=== PATIENT | female | born 2000 | race Caucasian/White ===

== ENCOUNTER 2021-09-13 08:54 | Emergency (ER) | payer SELFPAY ==
[2021-09-13] MEDS ORDERED: ONDANSETRON 4 MG (ODT) TAB ONE (09:27)
[2021-09-13 12:03] LABS: SARS-COV-2 RT PCR NEGATIVE (NEGATIVE)
--- NOTE | 2021-09-13 12:13 | EDPHYS ---
Physician Documentation [facility] Name: Shilpa Krueger Age: 21 yrs Sex: Female : 2000 Arrival Date: 09/13/2021 Time: 08:57 Bed 14 Private MD: ED Physician Eitan Naidu HPI: 09/13 09:30 This 21 yrs old Female presents to ER via Ambulatory with complaints of cp Vomiting/Diarrhea. 09:30 The patient presents to the emergency department with nausea, that is moderate, cp vomiting, that is intermittent, diarrhea, that is intermittent. Onset: The symptoms/episode began/occurred 3 day(s) ago. Possible causes: sick contacts, by co-worker(s). Associated signs and symptoms: Pertinent negatives: constipation, dysuria, fever, cough, sore throat. Severity of symptoms: in the emergency department the symptoms are unchanged despite home interventions. 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 - Social history:: Smoking status: Patient denies any tobacco usage or history of. ROS: 09:35 Constitutional: Negative for body aches, fever. cp 09:35 Eyes: Negative for injury, pain, redness, and discharge. cp 09:35 ENT: Negative for drainage from ear(s), ear pain, sore throat, difficulty swallowing, difficulty handling secretions. 09:35 Respiratory: Negative for cough, shortness of breath, wheezing. 09:35 Abdomen/GI: Positive for nausea, vomiting, diarrhea, Negative for constipation. 09:35 : Negative for urinary symptoms. 09:35 Neuro: Negative for altered mental status, headache, weakness. 09:35 All other systems are negative. Exam: 09:40 Constitutional: The patient appears in no acute distress, alert, awake, non-toxic, well cp developed, well nourished, obese. 09:40 Head/Face: Normocephalic, atraumatic. cp 09:40 Eyes: Periorbital structures: appear normal, Conjunctiva: normal, no exudate, no injection, Sclera: no appreciated abnormality, Lids and lashes: appear normal, bilaterally. 09:40 ENT: External ear(s): are unremarkable, Nose: is normal, Mouth: Lips: moist, Oral mucosa: pink and intact, moist, Posterior pharynx: Airway: no evidence of obstruction, patent, Tonsils: are normal in appearance. 09:40 Neck: ROM/movement: is normal, is supple, without pain, no range of motions limitations. 09:40 Chest/axilla: Inspection: normal, Palpation: is normal, no crepitus, no tenderness. 09:40 Cardiovascular: Rate: normal, Rhythm: regular. 09:40 Respiratory: the patient does not display signs of respiratory distress, Respirations: normal, no use of accessory muscles, no retractions, labored breathing, is not present, Breath sounds: are clear throughout, no decreased breath sounds, no stridor, no wheezing. 09:40 Abdomen/GI: Inspection: abdomen appears normal, Bowel sounds: active, all quadrants, Palpation: abdomen is soft and non-tender, in all quadrants. 09:40 Back: pain, is absent, ROM is normal. Vital Signs: 09:07 BP 157 / 82; Pulse 97; Resp 18; Temp 97.9(TE); Pulse Ox 100% on R/A; Weight 149.69 kg; iw Height 5 ft. 6 in. (167.64 cm); Pain 9/10; 09:07 Body Mass Index 53.26 (149.69 kg, 167.64 cm) iw MDM: 09:20 Patient medically screened. cp 10:00 Differential diagnosis: gastritis, cholecystitis, viral gastroenteritis, cp gastroenteritis. 12:11 Data reviewed: vital signs, nurses notes, lab test result(s). cp 12:11 Counseling: I had a detailed discussion with the patient and/or guardian regarding: the cp historical points, exam findings, and any diagnostic results supporting the discharge/admit diagnosis, lab results, to return to the emergency department if symptoms worsen or persist or if there are any questions or concerns that arise at home. ED course: VSS. Patient appears non-toxic. Nausea improved and vomiting resolved. Will discharge to home for continued monitoring. 09/13 09:22 Order name: COVID-19/FLU A+B (Document "Date of Onset" if Symptomatic); Complete Time: cp 12:17 09/13 12:17 Interpretation: Reviewed. cp 09/13 11:23 Order name: PO challenge; Complete Time: 11:30 cp Administered Medications: 09:29 Drug: Zofran (Ondansetron) 4 mg Route: PO; gary Disposition Summary: 09/13/21 12:12 Discharge Ordered Location: Home cp Problem: new cp Symptoms: have improved cp Condition: Stable cp Diagnosis - Nausea with vomiting, unspecified cp - Diarrhea, unspecified cp Followup: cp - With: Private Physician - When: 1 - 2 days - Reason: Worsening of condition Discharge Instructions: - Discharge Summary Sheet cp - Food Choices to Help Relieve Diarrhea, Adult cp - Diarrhea, Adult cp - Nausea and Vomiting, Adult cp Forms: - Medication Reconciliation Form cp - Thank You Letter cp - Antibiotic Education cp - Prescription Opioid Use cp - Work release form ww Prescriptions: - Zofran 4 mg Oral Tablet - take 1 tablet by ORAL route every 12 hours As needed; 20 tablet; Refills: 0, cp Product Selection Permitted Signatures: Dispatcher [employer] Linda Oquendo, RN RN Jeramy Carrizales PA PA cp Wood, Whitney, RN MENA vega
--- NOTE | 2021-09-13 12:13 | ER ---
Nurse's Notes [facility] Name: Shilpa Krueger Age: 21 yrs Sex: Female : 2000 Arrival Date: 09/13/2021 Time: 08:57 Bed 14 Private MD: Diagnosis: Nausea with vomiting, unspecified;Diarrhea, unspecified Presentation: 09/13 09:07 Chief complaint: Patient states: vomiting diarrhea and body aches X 3 days, states that iw several of her coworkers have been diagnosed with COVID recently, pt denies cough. Coronavirus screen: Client presents with at least one sign or symptom that may indicate coronavirus-19. Ebola Screen: Patient negative for fever greater than or equal to 101.5 degrees Fahrenheit, and additional compatible Ebola Virus Disease symptoms Patient denies exposure to infectious person. Patient denies travel to an Ebola-affected area in the 21 days before illness onset. No symptoms or risks identified at this time. Initial Sepsis Screen: Does the patient meet any 2 criteria? No. Patient's initial sepsis screen is negative. Does the patient have a suspected source of infection? No. Patient's initial sepsis screen is negative. Risk Assessment: Do you want to hurt yourself or someone else? Patient reports no desire to harm self or others. Onset of symptoms was September 13, 2021. 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 - Social history:: Smoking status: Patient denies any tobacco usage or history of. Screenin:29 Abuse screen: Denies threats or abuse. Denies injuries from another. Nutritional ww screening: No deficits noted. Tuberculosis screening: No symptoms or risk factors identified. Fall Risk None identified. Assessment: 09:29 General: Appears in no apparent distress. Behavior is anxious, crying. Pain: Denies ww pain. Neuro: Level of Consciousness is awake, alert, obeys commands, Oriented to person, place, time, situation, Speech is normal. Cardiovascular: Capillary refill Patient's skin is warm and dry. Respiratory: Airway is patent Respiratory effort is even, unlabored, Respiratory pattern is regular, symmetrical. GI: Abdomen is obese, Reports nausea. : No signs and/or symptoms were reported regarding the genitourinary system. Derm: Skin is intact. 11:00 Reassessment: Patient appears in no apparent distress at this time. No changes from ww previously documented assessment. Patient and/or family updated on plan of care and expected duration. Pain level reassessed. Patient is alert, oriented x 3, equal unlabored respirations, skin warm/dry/pink. 11:40 Reassessment: Patient appears in no apparent distress at this time. Patient and/or ww family updated on plan of care and expected duration. Pain level reassessed. tolerating water and gatorade. 12:24 Reassessment: Patient appears in no apparent distress at this time. No changes from ww previously documented assessment. Patient and/or family updated on plan of care and expected duration. Pain level reassessed. Vital Signs: 09:07 BP 157 / 82; Pulse 97; Resp 18; Temp 97.9(TE); Pulse Ox 100% on R/A; Weight 149.69 kg; iw Height 5 ft. 6 in. (167.64 cm); Pain 9/10; 09:07 Body Mass Index 53.26 (149.69 kg, 167.64 cm) ED Course: 08:57 Patient arrived in ED. mr 09:00 Jeramy Mcknight PA is PHCP. cp 09:00 Eitan Naidu MD is Attending Physician. cp 09:10 Triage completed. iw 09:10 Arm band placed on. iw 09:23 Janette Christiansen, MENA is Primary Nurse. ww 09:24 Patient has correct armband on for positive identification. Bed in low position. Call 5 light in reach. Side rails up X 1. Pulse ox on. NIBP on. 09:24 COVID swab sent to lab. [facility] 12:24 No provider procedures requiring assistance completed. Patient did not have IV access ww during this emergency room visit. Administered Medications: 09:29 Drug: Zofran (Ondansetron) 4 mg Route: PO; ww Outcome: 12:12 Discharge ordered by . cp 12:24 Discharged to home ambulatory. ww 12:24 Condition: stable 12:24 Discharge instructions given to patient, Instructed on discharge instructions, follow up and referral plans. medication usage, safety practices, Demonstrated understanding of instructions, follow-up care, medications, Prescriptions given X 1. 12:24 Patient left the ED. ww Signatures: Shavon Monte Irene, RN RN iw Jeramy Mcknight PA PA cp Martinez, Maria [facility] Janette Christiansen RN RN ww Corrections: (The following items were deleted from the chart) 09:17 09:07 BP 157 / 82; Pulse 97bpm; Resp 18bpm; Pulse Ox 100% RA; 149.69 kg; Height 5 ft. 6 iw in.; BMI: 53.2; Pain 9/10; iw
[2021-09-13 12:58] VITALS: BP 157/82; TEMP 97.9; O2SAT 100
== END 2021-09-13 12:24 | disposition home or self-care (01) ==
LOC: ER 08:54
DX: R11.2 Nausea with vomiting, unspecified (principal); R19.7 Diarrhea, unspecified; Z20.822 Contact with and (suspected) exposure to COVID-19
CPT/HCPCS: 0240U; 99283

== ENCOUNTER → 2023-08-23 | Emergency (ER) | payer BC ==
[~2023-08-23] MED LIST: DICYCLOMINE HCL 10 MG CAP ONE; FAMOTIDINE 20 MG/2 ML VIAL IV ONE; KETOROLAC 30 MG/ML INJ ONE; METOCLOPRAMIDE 10 MG/2mL INJ ONE; MORPHINE 4 MG/ML SYR ONE; NA CHLORIDE 0.9% 1,000 ML ONE; ONDANSETRON 4 MG/2 ML VIAL ONE; PROMETHAZINE 25 MG TABLET ONE
--- OUTSIDE RECORDS SUMMARY | 2023-08-23 04:36 | XMS REPORT | Continuity of Care Document ---
Author Name Unknown Address [address] [place] [address] [facility] thconnect Address [address] [place] [address] Care Team Providers Care Acute Specialist Name Role Phone Unavailable Unavailable Unavailable Encounters Start Date/Time End Date/Time Encounter Type Admission Type Attending Clinicians Care Facility Care Department Encounter ID Source 2022-09-29 16:59:57 2022-09-29 16:59:57 Outpatient [facility] [id number] 2022-09-02 10:22:48 2022-09-02 10:22:48 Outpatient [facility] [id number] 2022-07-23 09:01:19 2022-07-23 09:01:19 Outpatient [facility] [id number] 2022-06-17 10:12:20 2022-06-17 10:12:20 Outpatient [facility] [id number] Results Test Description Test Time Test Comments Results Result Co mments Source COMPREHENSIVE METABOLIC [id number] 04:05:00* Test Item Value Reference Range Interpretation Comme nts GLUCOSE (test code = 2217) 101 MG/DL 70-99 H BUN (test code = 2208) 10 MG/DL 6-20 CREATININE (test code = 2214) 0.79 MG/DL 0.60-1.30 eGFR (2020 CKD-EPI) (test code = 33708) 108 ML/MIN/1.73 >60 CALC BUN/CREAT (test code = 2235) 13 RATIO 6-28 SODIUM (test code = 2231) 139 MEQ/L 133-146 POTASSIUM (test code = 2228) 4.6 MEQ/L 3.5-5.4 CHLORIDE (test code = 2215) 105 MEQ/L 95-107 CARBON DIOXIDE (test code = 6) 23 MEQ/L 19-31 CALCIUM (test code = 2208) 9.3 MG/DL 8.5-10.5 PROTEIN, TOTAL (test code = 222) 7.2 G/DL 6.1-8.3 ALBUMIN (test code = 2201) 4.1 G/DL 3.5-5.2 CALC GLOBULIN (test code = 2240) 3.1 G/DL 1.9-3.7 CALC A/G RATIO (test code = 2234) 1.3 RATIO 1.0-2.6 BILIRUBIN, TOTAL (test code = 2206) 0.4 MG/DL See_Comment [Automated me ssage] The system which generated this result transmitted reference range: <=1.2. The reference range was not used to interpret this result as normal/abnormal. ALKALINE PHOSPHATASE (test code = 2203) 124 U/L 40-117 H AST (test code = 2217) 27 U/L 9-40 ALT (test code = 2218) 41 U/L 5-40 H LIPID [id number] 04:05:00* Test Item Value Reference Range Interpretation Comme nts CHOLESTEROL (test code = 2210) 186 MG/DL <200 TRIGLYCERIDES (test code = 2232) 103 MG/DL <150 HDL CHOLESTEROL (test code = 0) 36 MG/DL >39 L CALC LDL CHOL (test code = 2236) 129 MG/DL <100 H NOTE: CALCULATED LDL IS BASED ON FELICITY-SCHULTE METHOD WHICHINCLUDES ADJUSTABLE TRIGLYCERIDE:VLDL CHOLESTEROL RATIO.THIS FACTOR VARIES BY MEASURED TRIGLYCERIDE AND NON-HDLCHOLESTEROL CONCENTRATIONS WITH INCREASED CALCULATED LDL SEENIN HIGHER TRIGLYCERIDE OR LOWER NON-HDL SPECIMENS. FOR MOREINFORMATION, SEE CLIENT ANNOUNCEMENT AT [email or web address] RISK RATIO LDL/HDL (test code = 2238) 3.58 RATIO <3.22 H CBC W/AUTO DIFF WITH [id number] 03:47:46* Test Item Value Reference Range Interpretation Comme nts WBC (test code = 1001) 11.3 K/UL 3.5-11.0 H RBC (test code = 1002) 4.71 M/UL 3.80-5.40 HEMOGLOBIN (test code = 1003) 13.5 G/DL 11.5-15.5 HEMATOCRIT (test code = 1004) 40.4 % 34.0-45.0 MCV (test code = 1005) 85.8 fL 80.0-99.0 MCH (test code = 1006) 28.7 PG 25.0-33.0 MCHC (test code = 1007) 33.4 G/DL 31.0-36.0 RDW (test code = 1038) 13.7 % 11.5-15.0 NEUTROPHILS (test code = 1008) 77.7 % LYMPHOCYTES (test code = 1010) 15.3 % MONOCYTES (test code = 1011) 5.7 % EOSINOPHILS (test code = 1012) 0.5 % BASOPHILS (test code = 1013) 0.3 % IMMATURE GRANULOCYTES (test code = 1036) 0.5 % NUCLEATED RBCS (test code = 1065) 0.0 /100 WBC'S See_Comment [Automated BuddyBeta ge] The system which generated this result transmitted reference range: 0.0. The reference range was not used to interpret this result as normal/abnormal. PLATELET COUNT (test code = 1015) 423 K/UL 130-400 H ABSOLUTE NEUTROPHILS (test code = 1066) 8.80 K/UL 1.50-7.50 H ABSOLUTE LYMPHOCYTES (test code = 1067) 1.73 K/UL 1.00-4.00 ABSOLUTE MONOCYTES (test code = 1068) 0.65 K/UL 0.20-1.00 ABSOLUTE EOSINOPHILS (test code = 1040) 0.06 K/UL 0.00-0.50 ABSOLUTE BASOPHILS (test code = 1069) 0.03 K/UL 0.00-0.20 ABS IMMATURE GRANULOCYTES (test code = 1020) 0.06 K/UL 0.00-0.10 ABS NUCLEATED RBCS (test code = 42778) 0.00 K/UL 0.00-0.11
[2023-08-23 05:13] LABS: Specific Gravity 1.028 (1.005-1.030)
[2023-08-23 05:15] LABS: Specific Gravity 1.028 (1.005-1.030); Urine Bacteria <20 /HPF (<20); Urine Bilirubin NEGATIVE (Negative); Urine Blood Negative (Negative); Urine Clarity Turbid (Clear); Urine Color Light-Yellow (Yellow); Urine Glucose NEGATIVE (Negative); Urine Mucus Slight /HPF (None Seen); Urine Protein NEGATIVE (Negative); Urine RBC None Seen /HPF (None Seen); Urine Urobilinogen 1+ (Normal)
[2023-08-23 05:17] LABS: Absolute Eosinophils 0.1 K/uL (0-0.5); Absolute Lymphocytes (CBC) 3.3 K/uL (0.7-4.9); Absolute Monocytes 0.9 K/uL (0.1-1.3); Absolute Neutrophil 10.2 K/uL (1.8-8.0); Basophils % 0.2 % (0-1.3); Eosinophils % 0.8 % (0-4.4); Hematocrit 41.5 % (36.0-45.0); Lymphocytes % 22.6 % (15.3-44.8); MCHC 33.7 g/dL (32.0-36.0); MCV 86.2 fL (80-100); MPV 7.8 fL (7.6-11.3); Monocytes % 6.3 % (3.3-12.3); Neutrophils % 70.1 % (41.7-73.7); Nucleated Red Blood Cells % 0.1 % (0-0); Platelets 436 thou/uL (152-406); RBC Red Blood Cell Count 4.81 M/uL (3.86-4.86); Red Cell Distribution Width 14.9 % (12.1-15.2)
[2023-08-23 05:28] LABS: Albumin 3.6 g/dL (3.4-5.0); Albumin/Globulin Ratio 0.8 (1.1-1.8); Anion Gap 9.8 mEq/L (5.0-15.0); Bilirubin Total 0.4 mg/dL (0.2-1.0); Globulin 4.4 g/dL (2.3-3.5); Potassium 3.8 mEq/L (3.5-5.1)
--- NOTE | 2023-08-23 07:28 | ER ---
Nurse's Notes [facility] Name: Shilpa Chawla Age: 23 yrs Sex: Female : 2000 Arrival Date: 08/23/2023 Time: 04:32 Bed 7 Private MD: Diagnosis: Other cholelithiasis without obstruction;Biliary colic, cholelithiasis without cholecystitis Presentation: 08/22 04:40 Chief complaint: Patient states: epigastric pain starting at 0200 today that gets worse km8 with palpation; denies n/v/d or fever. Coronavirus screen: Client denies travel out of the [place] in the last 14 days. Ebola Screen: No symptoms or risks identified at this time. Initial Sepsis Screen: Does the patient meet any 2 criteria? HR > 90 bpm. No. Patient's initial sepsis screen is negative. Does the patient have a suspected source of infection? No. Patient's initial sepsis screen is negative. Risk Assessment: Do you want to hurt yourself or someone else? Patient reports no desire to harm self or others. Onset of symptoms was August 23, 2023 at 02:00. 04:40 Method Of Arrival: Ambulatory km8 04:40 Acuity: KAPIL 3 km8 Triage Assessment: 04:40 General: Appears uncomfortable, Behavior is cooperative, anxious, crying. Pain: km8 Complains of pain in epigastric area and right upper quadrant Pain currently is 6 out of 10 on a pain scale. Aggravated by. EENT: No signs and/or symptoms were reported regarding the EENT system. Neuro: Level of Consciousness is awake, alert, obeys commands, Oriented to person, place, time, situation. Cardiovascular: Denies chest pain, shortness of breath, Patient's skin is warm and dry. Respiratory: Airway is patent Respiratory effort is even, unlabored, Respiratory pattern is regular, symmetrical. GI: Abdomen is obese, Abdomen is tender to palpation in epigastric area and right upper quadrant. : No signs and/or symptoms were reported regarding the genitourinary system. Derm: No signs and/or symptoms reported regarding the dermatologic system. Skin is intact, is healthy with good turgor, Skin is dry, Skin is flushed, Skin temperature is warm. Musculoskeletal: No signs and/or symptoms reported regarding the musculoskeletal system. Range of motion: intact in all extremities. 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 - Social history:: Smoking status: Patient denies any tobacco usage or history of. Patient uses alcohol, but reports only rare drinking. Patient/guardian denies using street drugs. - Family history:: not pertinent. Screenin:40 [facility] ED Fall Risk Assessment (Adult) History of falling in the last 3 months, km8 including since admission No falls in past 3 months (0 pts) Confusion or Disorientation No (0 pts) Intoxicated or Sedated No (0 pts) Impaired Gait No (0 pts) Mobility Assist Device Used No (0 pt) Altered Elimination No (0 pt) Score/Fall Risk Level 0 - 2 = Low Risk Oriented to surroundings, Maintained a safe environment, Educated pt \T\ family on fall prevention, incl call for assistance when getting out of bed, Assessed \T\ reinforced patient's understanding of fall precautions. Abuse screen: Denies threats or abuse. Denies injuries from another. Nutritional screening: No deficits noted. Tuberculosis screening: No symptoms or risk factors identified. Assessment: 04:40 Reassessment: see triage assessment/notes. km8 06:34 Reassessment: Patient and/or family updated on plan of care and expected duration. Pain tm6 level reassessed. Patient is alert, oriented x 3, equal unlabored respirations, skin warm/dry/pink. 07:10 Reassessment: Dr. Marin at . ll1 07:29 General: Appears in no apparent distress. Behavior is calm, cooperative, appropriate ll1 for age. Pain: Complains of pain in epigastric area Pain currently is 3 out of 10 on a pain scale. Quality of pain is described as aching. Neuro: No deficits noted. Cardiovascular: No deficits noted. GI: Abdomen is round Bowel sounds present X 4 quads. Reports upper abdominal pain. 07:43 Reassessment: No changes from previously documented assessment. Patient and/or family ll1 updated on plan of care and expected duration. Pain level reassessed. Patient is alert, oriented x 3, equal unlabored respirations, skin warm/dry/pink. Patient states feeling better. Patient states symptoms have improved. Vital Signs: 04:40 BP 140 / 75; Pulse 106; Resp 18; Temp 97.3(IR); Pulse Ox 99% on R/A; Weight 149.69 kg km8 (R); Height 5 ft. 7 in. (R); Pain 6/10; 05:00 BP 129 / 80; Pulse 102; Resp 18; Pulse Ox 96% on R/A; km8 06:33 BP 127 / 69; Pulse 104; Resp 21; Pulse Ox 98% on R/A; Pain 0/10; tm6 07:13 BP 125 / 76; Pulse 98; Resp 19; Pulse Ox 96% on R/A; ll1 07:44 Pulse 96; Resp 17; Pulse Ox 97% ; ll1 04:40 Body Mass Index 51.68 (149.69 kg, 170.18 cm) km8 04:40 Pain Scale: Adult km8 06:33 Pain Scale: Adult tm6 Jazmyne Coma Score: 04:40 Eye Response: spontaneous(4). Motor Response: obeys commands(6). Verbal Response: km8 oriented(5). Total: 15. ED Course: 04:35 Patient arrived in ED. jj6 04:40 Patient maintains SpO2 saturation greater than 95% on room air. km8 04:40 Arm band placed on right wrist. km8 04:40 Patient has correct armband on for positive identification. Placed in gown. Bed in low km8 position. Call light in reach. Side rails up X2. Pulse ox on. NIBP on. Door closed. Noise minimized. Lights dimmed. 04:43 Dillan Mrain MD is Attending Physician. sp4 04:55 Initial lab(s) drawn, by me, sent to lab. Inserted saline lock: 22 gauge in right kd4 antecubital area, using aseptic technique. 05:01 CBC with Diff Sent. 8 05:01 CMP Sent. 8 05:01 Lipase Sent. 8 05:01 Test, Urine Sent. 8 05:01 Urinalysis w/ reflexes Sent. 8 05:03 Triage completed. km8 05:08 Urine collected: clean catch specimen, clear. km8 05:13 Chelsea Villaseñor, RN is Primary Nurse. km8 05:44 US Abdomen Limited In Process Unspecified. EDMS 05:57 CT Abd/Pelvis - IV Contrast Only In Process Unspecified. EDMS 06:47 Client placed on continuous cardiac and pulse oximetry monitoring. NIBP monitoring tm6 applied. court monitor on. 07:00 Report received from shift mgr RN's. ll1 07:21 Srini Fan MD is Referral Physician. sp4 07:30 No provider procedures requiring assistance completed. ll1 07:34 Primary Nurse role handed off by Chelsea Villaseñor, RN ll1 07:34 Zac Canela, MENA is Primary Nurse. ll1 07:43 IV discontinued, intact, bleeding controlled, No redness/swelling at site. Pressure ll1 dressing applied. 07:43 Provided Education on: no driving on Tylenol #3 and promethazine tablets. ll1 Administered Medications: 05:34 Drug: Ketorolac IVP 30 mg IVP once Route: IVP; Site: right antecubital; tm6 06:39 Follow up: Response: No adverse reaction; Pain is decreased km8 05:34 Drug: NS 0.9% IV 1000 ml IV at 1 bolus Per protocol; 1000 mL bolus Route: IV; Rate: 1 tm6 bolus; Site: right antecubital; 05:34 Drug: Ondansetron IVP 4 mg IVP once; over 2 minutes Route: IVP; Site: right antecubital;tm6 06:39 Follow up: Response: No adverse reaction km8 05:34 Drug: metoCLOPramide IVP 10 mg IVP once; over 1 to 2 minutes Route: IVP; Site: right tm6 antecubital; 06:39 Follow up: Response: No adverse reaction km8 05:34 Drug: Famotidine IVP 20 mg IVP once; dilute with 10 mL 0.9% NaCl; give over 2 minutes tm6 Route: IVP; Site: right antecubital; 06:39 Follow up: Response: No adverse reaction km8 05:35 Drug: morphine IVP or IV 4 mg IVP once over 4 mins Route: IVP; Infused Over: 4 mins; tm6 Site: right antecubital; 06:39 Follow up: Response: No adverse reaction; Pain is decreased km8 06:43 Drug: NS 0.9% IV 1000 ml IV at 125 ml/hr continuous Route: IV; Rate: 125 ml/hr; Site: tm6 right antecubital; 07:29 Drug: Dicyclomine PO 20 mg PO once Route: PO; 1 07:43 Follow up: Response: No adverse reaction 1 07:40 Drug: Promethazine PO 25 mg PO once Route: PO; 1 07:44 Follow up: Response: No adverse reaction 1 Medication: 04:40 VIS not applicable for this client. km8 Outcome: 07:27 Discharge ordered by . domi 07:43 Discharged to home ambulatory, 1 07:43 Condition: stable 07:43 Discharge instructions given to patient, family, Instructed on discharge instructions, follow up and referral plans. no drinking with medication, no driving heavy equipment, medication usage, Demonstrated understanding of instructions, follow-up care, medications, Prescriptions given X 3, 07:45 Patient left the ED. 1 Signatures: Dispatcher [employer] EDMS Zac Canela RN RN ll1 Mavis Terry6 Dillan Marin MD MD sp4 Chelsea Villaseñor RN RN km8 Bridger Main RN RN tm6 Hanna Martinez RN RN kd4 Corrections: (The following items were deleted from the chart) 07:14 07:13 Pulse 98bpm; Pulse Ox 96% RA; ll1 ll1
--- NOTE | 2023-08-23 07:28 | EDPHYS ---
Physician Documentation [facility] Name: Shilpa Chawla Age: 23 yrs Sex: Female : 2000 Arrival Date: 08/23/2023 Time: 04:32 Bed 7 Private MD: ED Physician Dillan Marin HPI: 08/22 04:44 This 23 yrs old Female presents to ER via Unassigned with complaints of sp4 Abdominal Pain. 05:17 23-year-old female who presents with acute onset right upper quadrant abdominal pain, sp4 associated with nausea vomiting on awakening 2 hours prior to arrival. Patient has no history of prior to . No history of abdominal surgery. Pain is 6 out of 10 on a scale. 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 - Social history:: Smoking status: Patient denies any tobacco usage or history of. Patient uses alcohol, but reports only rare drinking. Patient/guardian denies using street drugs. - Family history:: not pertinent. ROS: 05:17 Constitutional: Negative for fever, chills, and weight loss, positive abdominal pain, sp4 positive vomiting 05:17 All other systems are negative, Exam: 05:17 Constitutional: This is a well developed, well nourished patient who is awake, alert, sp4 and in no acute distress. Overweight female Head/Face: Normocephalic, atraumatic. Eyes: Pupils equal round and reactive to light, extra-ocular motions intact. Lids and lashes normal. Conjunctiva and sclera are not injected. Cornea within normal limits. Periorbital areas with no swelling, redness, or edema. ENT: Nares patent. No nasal discharge, no septal abnormalities noted. Tympanic membranes are normal and external auditory canals are clear. Oropharynx with no redness, swelling, or masses, exudates, or evidence of obstruction, uvula midline. Mucous membranes moist. Neck: Trachea midline, no thyromegaly or masses palpated, and no cervical lymphadenopathy. Supple, full range of motion without nuchal rigidity, or vertebral point tenderness. Chest/axilla: Normal chest wall appearance and motion. Nontender with no deformity. No lesions are appreciated. Cardiovascular: Regular rate and rhythm with a normal S1 and S2. No gallops, murmurs, or rubs. Normal PMI, no JVD. No pulse deficits. Respiratory: Lungs have equal breath sounds bilaterally, clear to auscultation and percussion. No rales, rhonchi or wheezes noted. No increased work of breathing, no retractions or nasal flaring. Abdomen/GI: Soft, with normal bowel sounds. No distension or tympany. No guarding or rebound. No evidence of tenderness throughout. Back: No spinal tenderness. No costovertebral tenderness. Skin: Warm, dry with normal turgor. Normal color with no rashes, no lesions, and no evidence of cellulitis. MS/ Extremity: Pulses equal, no cyanosis. Neurovascular intact. Full, normal range of motion. Neuro: Awake and alert, GCS 15, oriented to person, place, time, and situation. Cranial nerves II-XII grossly intact. Motor strength 5/5 in all extremities. Sensory grossly intact. Psych: Awake, alert, with orientation to person, place and time. Behavior, mood, and affect are within normal limits Vital Signs: 04:40 BP 140 / 75; Pulse 106; Resp 18; Temp 97.3(IR); Pulse Ox 99% on R/A; Weight 149.69 kg [facility] (R); Height 5 ft. 7 in. (R); Pain 6/10; 05:00 BP 129 / 80; Pulse 102; Resp 18; Pulse Ox 96% on R/A; km8 06:33 BP 127 / 69; Pulse 104; Resp 21; Pulse Ox 98% on R/A; Pain 0/10; tm6 07:13 BP 125 / 76; Pulse 98; Resp 19; Pulse Ox 96% on R/A; ll1 07:44 Pulse 96; Resp 17; Pulse Ox 97% ; ll1 04:40 Body Mass Index 51.68 (149.69 kg, 170.18 cm) [facility] 04:40 Pain Scale: Adult 8 06:33 Pain Scale: Adult tm6 Seney Coma Score: 04:40 Eye Response: spontaneous(4). Motor Response: obeys commands(6). Verbal Response: km8 oriented(5). Total: 15. MDM: 04:45 Patient medically screened. sp4 07:06 ED course: EXAM DESCRIPTION: Abdomen Exam Limited CLINICAL HISTORY: ABD PAIN sp4 COMPARISON: None. FINDINGS: Gallbladder is well visualized and demonstrates presence of gallstones. There is no evidence of pericholecystic edema or gallbladder wall thickening. The sonographic Galeana's sign is negative. The common bile duct measure 3.5 mm. The liver and pancreas are insufficiently evaluated. IMPRESSION: Gallstones. Electronically signed by: Beverly Mims MD 08/23/2023 06:56 AM. 07:06 ED course: EXAM DESCRIPTION: CT abdomen and pelvis with contrast: CLINICAL HISTORY: sp4 Abdominal pain. COMPARISON: Gallbladder ultrasound TECHNIQUE: Without oral contrast administration, and after intravenous administration of iodinated contrast, contiguous axial sections are obtained through the abdomen and pelvis including delayed imaging, as per protocol. Sagittal and coronal reformations are obtained. Automatic exposure control (AEC), mA and/or kV adjustment by patient size, and/or iterative reconstructive technique was used, per departmental dose optimization program, during the performance of the CT examination. FINDINGS: The visualized lung bases are normal. The liver is normal in size, attenuation, enhancement and outline. Spleen is normal limits in size and demonstrates no focal abnormalities. Normal appearance of the biliary tree, pancreas and adrenal glands are noted. The gallbladder is unremarkable.. The kidneys demonstrate no evidence of renal calculi or calcifications. The kidneys demonstrate normal size, shape and outline demonstrating normal enhancement. Normal appearance of the aorta, IVC and retroperitoneum are noted. Stomach appears normal. The small bowel loops appear normal. [The appendix is normal. The colon appears unremarkable. There is no evidence of free intraperitoneal fluid or air. CT examination of the pelvis demonstrates no evidence of mass or lymphadenopathy. The urinary bladder appears unremarkable. The Uterus and ovaries appear unremarkable.. There is no evidence of inguinal lymphadenopathy. The visualized bony structures are unremarkable. IMPRESSION: Unremarkable CT abdomen and pelvis. . 07:20 Differential Diagnosis altered mental status, sepsis, flu, Cholecystitis . Data sp4 reviewed: vital signs, nurses notes, lab test result(s), radiologic studies, CT scan, ultrasound. ED course: Ultrasound revealed gallstones without signs of acute cholecystitis, CT revealed normal appearance of the biliary tree and normal gallbladder. Unremarkable CT abdomen and pelvis. Patient is stable for discharge home with as needed pain and nausea medication nonfat diet. Advised to see general surgeon on outpatient basis.. 08/22 04:44 Order name: CBC with Diff; Complete Time: 06:56 sp4 08/22 04:44 Order name: CMP; Complete Time: 06:56 sp4 08/22 04:44 Order name: Lipase; Complete Time: 06:56 sp4 08/22 04:44 Order name: Test, Urine; Complete Time: 06:56 sp4 08/22 04:44 Order name: Urinalysis w/ reflexes; Complete Time: 06:56 sp4 08/22 05:17 Order name: US Abdomen Limited 4 08/22 05:17 Order name: CT Abd/Pelvis - IV Contrast Only 4 08/22 04:44 Order name: IV Saline Lock; Complete Time: 05:13 sp4 08/22 04:44 Order name: Labs collected and sent; Complete Time: 05:13 sp4 Administered Medications: 05:34 Drug: Ketorolac IVP 30 mg IVP once Route: IVP; Site: right antecubital; tm6 06:39 Follow up: Response: No adverse reaction; Pain is decreased km8 05:34 Drug: NS 0.9% IV 1000 ml IV at 1 bolus Per protocol; 1000 mL bolus Route: IV; Rate: 1 tm6 bolus; Site: right antecubital; 05:34 Drug: Ondansetron IVP 4 mg IVP once; over 2 minutes Route: IVP; Site: right antecubital;tm6 06:39 Follow up: Response: No adverse reaction km8 05:34 Drug: metoCLOPramide IVP 10 mg IVP once; over 1 to 2 minutes Route: IVP; Site: right tm6 antecubital; 06:39 Follow up: Response: No adverse reaction km8 05:34 Drug: Famotidine IVP 20 mg IVP once; dilute with 10 mL 0.9% NaCl; give over 2 minutes tm6 Route: IVP; Site: right antecubital; 06:39 Follow up: Response: No adverse reaction km8 05:35 Drug: morphine IVP or IV 4 mg IVP once over 4 mins Route: IVP; Infused Over: 4 mins; tm6 Site: right antecubital; 06:39 Follow up: Response: No adverse reaction; Pain is decreased [facility] 06:43 Drug: NS 0.9% IV 1000 ml IV at 125 ml/hr continuous Route: IV; Rate: 125 ml/hr; Site: tm6 right antecubital; 07:29 Drug: Dicyclomine PO 20 mg PO once Route: PO; ll1 07:43 Follow up: Response: No adverse reaction 1 07:40 Drug: Promethazine PO 25 mg PO once Route: PO; 1 07:44 Follow up: Response: No adverse reaction ll1 Disposition Summary: 08/23/23 07:27 Discharge Ordered Notes: Location: Home sp4 Problem: new sp4 Symptoms: have improved sp4 Condition: Stable sp4 Diagnosis - Other cholelithiasis without obstruction sp4 - Biliary colic, cholelithiasis without cholecystitis sp4 Followup: sp4 - With: Srini Fan MD - When: 7 - 10 days - Reason: Recheck today's complaints Discharge Instructions: - Discharge Summary Sheet sp4 - Cholelithiasis, [id number] sp4 Forms: - Work release form ll1 - Patient Portal Instructions sp4 Prescriptions: - acetaminophen-codeine 300-60 mg Oral tablet - take 1 tablet ORAL route every 4 hours PRN pain; 20 tablet; Refills: 0, Product sp4 Selection Permitted - Ibuprofen 800 mg Oral Tablet - take 1 tablet ORAL route every 8 hours As needed take with food; 30 tablet; sp4 Refills: 0, Product Selection Permitted - promethazine 25 mg Oral tablet - take 1 tablet ORAL route every 6 hours As needed PRN nausea; 30 tablet; sp4 Refills: 0, Product Selection Permitted Signatures: Dispatcher [employer] Zac Steel RN RN ll1 Dillan Marin MD MD sp4 Chelsea Villaseñor RN RN km8 Bridger Main RN RN tm6
[2023-08-23 08:01] VITALS: BP 125/76; TEMP 97.3; O2SAT 97
--- NOTE | 2023-08-23 17:05 | RAD REPORT ---
EXAM DESCRIPTION: CT abdomen and pelvis with contrast: CLINICAL HISTORY: Abdominal pain. COMPARISON: Gallbladder ultrasound TECHNIQUE: Without oral contrast administration, and after intravenous administration of iodinated c ontrast, contiguous axial sections are obtained through the abdomen and pelvis including delayed imag ing, as per protocol. Sagittal and coronal reformations are obtained. Automatic exposure control (AEC ), mA and/or kV adjustment by patient size, and/or iterative reconstructive technique was used, per d epartmental dose optimization program, during the performance of the CT examination. FINDINGS: The visualized lung bases are normal. The liver is normal in size, attenuation, enhancement and outline. Spleen is normal limits in size and demonstrates no focal abnormalities. Normal appearance of the biliary tree, pancreas and adrenal glands are noted. The gallbladder is unremarkable.. The kidneys demonstrate no evidence of renal calculi or calcifications. The kidneys demonstrate normal size, shape and outline demonstrating normal enhancement. Normal appearance of the aorta, IVC and retroperitoneum are noted. Stomach appears normal. The small bowel loops appear normal. The appendix is normal. The colon appears unremarkable. There is no evidence of free intraperitoneal fluid or air. CT examination of the pelvis demonstrates no evidence of mass or lymphadenopathy. The urinary bladder appears unremarkable. The Uterus and ovaries appear unremarkable.. There is no evidence of inguina l lymphadenopathy. The visualized bony structures are unremarkable. IMPRESSION: Unremarkable CT abdomen and pelvis. Electronically signed by: Beverly Mims MD 08/23/2023 06:58 AM CDT Due to temporary technical issues with the PACS/Fluency reporting system, reports are being signed by the in house radiologists without review as a courtesy to insure prompt reporting. The interpreting radiologist is fully responsible for the content of the report.
--- NOTE | 2023-08-23 17:08 | RAD REPORT ---
EXAM DESCRIPTION: Abdomen Exam Limited CLINICAL HISTORY: ABD PAIN COMPARISON: None. FINDINGS: Gallbladder is well visualized and demonstrates presence of gallstones. There is no evid ence of pericholecystic edema or gallbladder wall thickening. The sonographic Galeana's sign is negati ve. The common bile duct measure 3.5 mm. The liver and pancreas are insufficiently evaluated. IMPRESSION: Gallstones. Electronically signed by: Beverly Mims MD 08/23/2023 06:56 AM CDT Due to temporary technical issues with the PACS/Fluency reporting system, reports are being signed by the in house radiologists without review as a courtesy to insure prompt reporting. The interpreting radiologist is fully responsible for the content of the report.
== END ==
LOC: ER 04:32
DX: K80.80 Other cholelithiasis without obstruction (principal); K80.50 Calculus of bile duct without cholangitis or cholecystitis without obstruction
CPT/HCPCS: 85025; 81001; 36415; 81025; 83690; 80053; 74177; 76705; Q9967; Q0169; J2765; J2405; J7030 ×2

== ENCOUNTER 2023-08-28 13:16 | Inpatient (IN) | payer BC ==
--- OUTSIDE RECORDS SUMMARY | 2023-08-28 13:18 | XMS REPORT | Continuity of Care Document ---
Author Name Unknown Address [address] [place] [address] [facility] Address [address] [place] [address] Care Team Providers Care Head Of Business Development Name Role Phone Unavailable Unavailable Unavailable Encounters Start Date/Time End Date/Time Encounter Type Admission Type Attending Clinicians Care Facility Care Department Encounter ID Source 2022-09-29 16:59:57 2022-09-29 16:59:57 Outpatient [facility] [id number] 2022-09-02 10:22:48 2022-09-02 10:22:48 Outpatient [facility] [id number]y 2022-07-23 09:01:19 2022-07-23 09:01:19 Outpatient [facility] [id number] 2022-06-17 10:12:20 2022-06-17 10:12:20 Outpatient [facility] [id number] Grant Results Test Description Test Time Test Comments Results Result Co mments Source COMPREHENSIVE METABOLIC [id number] 04:05:00* Test Item Value Reference Range Interpretation Comme nts GLUCOSE (test code = 2217) 101 MG/DL 70-99 H BUN (test code = 2208) 10 MG/DL 6-20 CREATININE (test code = 2214) 0.79 MG/DL 0.60-1.30 eGFR (2020 CKD-EPI) (test code = 23553) 108 ML/MIN/1.73 >60 CALC BUN/CREAT (test code = 2235) 13 RATIO 6-28 SODIUM (test code = 2231) 139 MEQ/L 133-146 POTASSIUM (test code = 2228) 4.6 MEQ/L 3.5-5.4 CHLORIDE (test code = 2215) 105 MEQ/L 95-107 CARBON DIOXIDE (test code = 2205) 23 MEQ/L 19-31 CALCIUM (test code = 2208) 9.3 MG/DL 8.5-10.5 PROTEIN, TOTAL (test code = 2228) 7.2 G/DL 6.1-8.3 ALBUMIN (test code = 1) 4.1 G/DL 3.5-5.2 CALC GLOBULIN (test code = 0) 3.1 G/DL 1.9-3.7 CALC A/G RATIO (test code = 223) 1.3 RATIO 1.0-2.6 BILIRUBIN, TOTAL (test code [...] = 2218) 41 U/L 5-40 H LIPID [id number] 04:05:00* Test Item Value Reference Range Interpretation [...] SPECIMENS. FOR MOREINFORMATION, SEE CLIENT ANNOUNCEMENT AT [email or web address] RATIO LDL/HDL (test code = 2238) 3.58 RATIO <3.22 H CBC W/AUTO DIFF WITH [id number] 03:47:46* Test Item Value Reference Range Interpretation [...] = 1065) 0.0 /100 WBC'S See_Comment [Automated [employer]] The system which generated this result [...] 0.00-0.10 ABS NUCLEATED RBCS (test code = 09116) 0.00 K/UL 0.00-0.11
[2023-08-28] MEDS ORDERED: MORPHINE 4 MG/ML SYR ONE (14:06)
[2023-08-28] MEDS ORDERED: ONDANSETRON 4 MG/2 ML VIAL ONE (14:06)
--- NOTE | 2023-08-28 14:07 | EDPHYS ---
Physician Documentation [facility] Name: Shilpa Chawla Age: 23 yrs Sex: Female : 2000 Arrival Date: 08/28/2023 Time: 13:16 Bed 14 Private MD: ED Physician Elliot Wick HPI: 08/27 14:10 This 23 yrs old Female presents to ER via Ambulatory with complaints of Abdominal Pain. sb4 14:10 Patient presents with complaints of right upper quadrant abdominal pain. She was seen sb4 here 6 days ago and diagnosed with gallstones, discharged with Tylenol with codeine. States that she has an appointment with Dr. Fan in 10 days but her pain has been intractable. She states that she has made dietary modifications as well without significant improvement. States that she is in too much pain to even work or lay down flat. She denies any fever, chills, vomiting, diarrhea. 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 - Social history:: Smoking status: Patient denies any tobacco usage or history of. ROS: 14:10 Constitutional: Negative for fever, chills, and weight loss, sb4 14:10 Abdomen/GI: Positive for abdominal pain, 14:10 All other systems are negative, Exam: 14:10 Head/Face: Normocephalic, atraumatic. Eyes: Extra-ocular motions intact. Periorbital sb4 areas with no swelling, redness, or edema. ENT: Mucous membranes moist. Cardiovascular: Regular rate and rhythm with a normal S1 and S2. Respiratory: Lungs have equal breath sounds bilaterally, clear to auscultation and percussion. No rales, rhonchi or wheezes noted. No increased work of breathing, no retractions or nasal flaring. Skin: Warm, dry with normal turgor. Normal color with no rashes, no lesions, and no evidence of cellulitis. MS/ Extremity: Pulses equal, no cyanosis. Neurovascular intact. Full, normal range of motion. Neuro: Awake and alert, GCS 15, oriented to person, place, time, and situation. Motor strength 5/5 in all extremities. Sensory grossly intact. 14:10 Constitutional: The patient appears alert, awake, obese, in obvious pain, 14:10 Abdomen/GI: Inspection: abdomen appears normal, obese Bowel sounds: normal, Palpation: soft, moderate abdominal tenderness, in the right upper quadrant, Vital Signs: 13:25 BP 133 / 79; Pulse 88; Resp 18; Temp 97.6; Pulse Ox 98% on R/A; Weight 149.69 kg; ph Height 5 ft. 7 in. ; 14:34 BP 142 / 84; Pulse 81; Resp 16 S; Pulse Ox 96% on R/A; kc6 15:37 BP 119 / 72; Pulse 75; Resp 16 S; Pulse Ox 93% on R/A; kc6 16:49 BP 121 / 73; Pulse 77; Resp 18 S; Pulse Ox 94% on R/A; kc6 13:25 Body Mass Index 51.68 (149.69 kg, 170.18 cm) ph MDM: 13:31 Patient medically screened. 4 14:10 Data reviewed: vital signs, nurses notes, lab test result(s), I have discussed the sb4 patient's presentation/case with the attending Emergency Department Physician; and as a result, I will admit patient. Consideration of Admission/Observation Patient was admitted/placed on observation. Management of patient was discussed with the following: Physicist Nuclear: Dr. Kline, will admit patient and take to the OR tomorrow morning for cholecystectomy. Counseling: I had a detailed discussion with the patient and/or guardian regarding the historical points, exam findings, and any diagnostic results supporting the discharge/admit diagnosis, the need for further work-up and treatment in the hospital. 08/27 14:04 Order name: CBC with Diff; Complete Time: 14:30 sb4 08/27 14:04 Order name: CMP; Complete Time: 14:49 sb4 08/27 14:09 Order name: Test, Urine; Complete Time: 14:30 sb4 08/27 14:04 Order name: IV Start; Complete Time: 14:18 sb4 Administered Medications: 14:18 Drug: morphine IVP or IV 4 mg IVP once over 4 mins Route: IVP; Infused Over: 4 mins; kc6 Site: right antecubital; 15:38 Follow up: Response: No adverse reaction; Pain is decreased; RASS: Alert and Calm (0) kc6 14:18 Drug: Ondansetron IVP 4 mg IVP once; over 2 minutes Route: IVP; Site: right antecubital;kc6 15:38 Follow up: Response: No adverse reaction kc6 Disposition: 14:46 I was immediately available on-site in the Emergency Department for consultation in the ms3 care of the patient. Disposition Summary: 08/28/23 14:07 Hospitalization Ordered Notes: Hospitalization Status: Inpatient Admission sb4 Provider: Trevor Kline sb4 Location: Telemetry/[facility] (Inpatient) sb4 Condition: Stable sb4 Problem: an ongoing problem sb4 Symptoms: are unchanged sb4 Bed/Room Type: Standard sb4 Room Assignment: 406(08/28/23 16:05) bd Diagnosis - Other cholelithiasis without obstruction sb4 Forms: - Medication Reconciliation Form sb4 - SBAR form sb4 - Leadership Thank You Letter sb4 Signatures: Dispatcher [employer] EDRadha Gale Patricia, RN RN Elliot Wick DO DO ms3 Eugenie Elena, RN RN kc6 Jayde Rodriguez, PABelkisC PA-C sb4 Corrections: (The following items were deleted from the chart) 16:05 14:07 sb4 bd
--- NOTE | 2023-08-28 14:07 | ER ---
Nurse's Notes [facility] Name: Shilpa Chawla Age: 23 yrs Sex: Female : 2000 Arrival Date: 08/28/2023 Time: 13:16 Bed 14 Private MD: Diagnosis: Other cholelithiasis without obstruction Presentation: 08/27 13:25 Chief complaint: Patient states: Seen in ED approx 6 days ago, dx w/ gallstones, states ph that she is still having pain, made a follow up appointment w/ Dr Fan but it is not until 09/06. Coronavirus screen: Vaccine status: Patient reports receiving the 2nd dose of the covid vaccine. Ebola Screen: No symptoms or risks identified at this time. Initial Sepsis Screen: Does the patient meet any 2 criteria? No. Patient's initial sepsis screen is negative. Does the patient have a suspected source of infection? No. Patient's initial sepsis screen is negative. Risk Assessment: Do you want to hurt yourself or someone else? Patient reports no desire to harm self or others. Onset of symptoms was August 28, 2023. 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 - Social history:: Smoking status: Patient denies any tobacco usage or history of. Screenin:03 [facility] ED Fall Risk Assessment (Adult) History of falling in the last 3 months, kc6 including since admission No falls in past 3 months (0 pts) Confusion or Disorientation No (0 pts) Intoxicated or Sedated No (0 pts) Impaired Gait No (0 pts) Mobility Assist Device Used No (0 pt) Altered Elimination No (0 pt) Score/Fall Risk Level 0 - 2 = Low Risk. Abuse screen: Denies threats or abuse. Denies injuries from another. Nutritional screening: No deficits noted. Tuberculosis screening: No symptoms or risk factors identified. Assessment: 14:32 General: Appears in no apparent distress. uncomfortable, obese, well groomed, well kc6 developed, Behavior is calm, cooperative, appropriate for age. Pain: Complains of pain in right upper quadrant Pain does not radiate. Pain currently is 8 out of 10 on a pain scale. Noted to be crying, guarding. Neuro: Level of Consciousness is awake, alert, obeys commands, Oriented to person, place, time, situation, Appropriate for age. Cardiovascular: Capillary refill < 3 seconds. GI: Abdomen is round non-distended, obese, Bowel sounds present X 4 quads. Abd is soft X 4 quads Abdomen is tender to palpation in right upper quadrant Reports upper abdominal pain, Patient currently denies diarrhea, nausea, vomiting. : No signs and/or symptoms were reported regarding the genitourinary system. Urine is clear. EENT: No signs and/or symptoms were reported regarding the EENT system. Derm: No signs and/or symptoms reported regarding the dermatologic system. Skin is intact, is healthy with good turgor, Skin is pink, warm \T\ dry. Musculoskeletal: No signs and/or symptoms reported regarding the musculoskeletal system. Circulation, motion, and sensation intact. Capillary refill < 3 seconds, Range of motion: intact in all extremities. 15:37 Reassessment: Patient appears in no apparent distress at this time. No changes from kc6 previously documented assessment. Patient and/or family updated on plan of care and expected duration. Pain level reassessed. Patient is alert, oriented x 3, equal unlabored respirations, skin warm/dry/pink. Patient states feeling better. Patient states symptoms have improved. 16:35 Reassessment: Patient appears in no apparent distress at this time. No changes from kb3 previously documented assessment. Patient and/or family updated on plan of care and expected duration. Pain level reassessed. Patient is alert, oriented x 3, equal unlabored respirations, skin warm/dry/pink. Vital Signs: 13:25 BP 133 / 79; Pulse 88; Resp 18; Temp 97.6; Pulse Ox 98% on R/A; Weight 149.69 kg; ph Height 5 ft. 7 in. ; 14:34 BP 142 / 84; Pulse 81; Resp 16 S; Pulse Ox 96% on R/A; kc6 15:37 BP 119 / 72; Pulse 75; Resp 16 S; Pulse Ox 93% on R/A; kc6 16:49 BP 121 / 73; Pulse 77; Resp 18 S; Pulse Ox 94% on R/A; kc6 13:25 Body Mass Index 51.68 (149.69 kg, 170.18 cm) ED Course: 13:18 Patient arrived in ED. rg4 13:21 [facility] sb4 13:21 Elliot Wick DO is Attending Physician. sb4 13:27 Triage completed. ph 13:29 Arm band placed on Patient placed in waiting room, Patient notified of wait time. ph 14:01 Eugenie Elena, RN is Primary Nurse. kc6 14:03 Patient has correct armband on for positive identification. Bed in low position. Call kc6 light in reach. Side rails up X 1. Adult w/ patient. Client placed on continuous cardiac and pulse oximetry monitoring. NIBP monitoring applied. 14:03 Patient maintains SpO2 saturation greater than 95% on room air. kc6 14:07 Trevor Kline MD is Hospitalizing Provider. sb4 14:18 Inserted saline lock: 20 gauge in right antecubital area, using aseptic technique. kc6 Blood collected. Administered Medications: 14:18 Drug: morphine IVP or IV 4 mg IVP once over 4 mins Route: IVP; Infused Over: 4 mins; kc6 Site: right antecubital; 15:38 Follow up: Response: No adverse reaction; Pain is decreased; RASS: Alert and Calm (0) kc6 14:18 Drug: Ondansetron IVP 4 mg IVP once; over 2 minutes Route: IVP; Site: right antecubital;kc6 15:38 Follow up: Response: No adverse reaction kc6 Outcome: 14:07 Decision to Hospitalize by Provider. sb4 18:15 Patient left the ED. sb4 Signatures: Natasha Saenz, RN RN ph Kalie Pizarro rg4 Eugenie Elena RN RN kc6 Tory Emery RN RN kb3 Jayde Rodriguez PA-C PA-C sb4
[2023-08-28 14:27] LABS: Absolute Basophils 0.1 K/uL (0-0.5); Absolute Eosinophils 0.2 K/uL (0-0.5); Absolute Lymphocytes (CBC) 1.9 K/uL (0.7-4.9); Absolute Monocytes 0.6 K/uL (0.1-1.3); Absolute Neutrophil 6.9 K/uL (1.8-8.0); Basophils % 0.8 % (0-1.3); Eosinophils % 1.6 % (0-4.4); Hematocrit 40.3 % (36.0-45.0); Hemoglobin 13.8 g/dL (12.0-15.0); Lymphocytes % 19.7 % (15.3-44.8); MCH 29.6 pg (27.0-35.0); MCHC 34.3 g/dL (32.0-36.0); MCV 86.2 fL (80-100); MPV 7.6 fL (7.6-11.3); Monocytes % 6.2 % (3.3-12.3); Neutrophils % 71.7 % (41.7-73.7); Nucleated Red Blood Cells % 0.1 % (0-0); Platelets 411 thou/uL (152-406); RBC Red Blood Cell Count 4.68 M/uL (3.86-4.86); Red Cell Distribution Width 14.6 % (12.1-15.2)
[2023-08-28 14:28] LABS: Specific Gravity 1.016 (1.005-1.030)
[2023-08-28 14:48] LABS: Albumin 3.8 g/dL (3.4-5.0); Albumin/Globulin Ratio 0.9 (1.1-1.8); Anion Gap 8.7 mEq/L (5.0-15.0); Bilirubin Total 0.5 mg/dL (0.2-1.0); Globulin 4.1 g/dL (2.3-3.5); Potassium 3.7 mEq/L (3.5-5.1); Protein, Total 7.9 g/dL (6.4-8.2)
[2023-08-28 19:20] VITALS: BMI 51.7
[2023-08-28] MEDS: ONDANSETRON 4 MG/2 ML VIAL IV PRN (20:06)
[2023-08-28] MEDS: ACETAMINOPHEN 325 MG TABLET PO PRN (20:43)
[2023-08-28] MEDS: MORPHINE 4 MG/ML SYR IV PRN (20:45)
[2023-08-28] MEDS: NA CHLORIDE 0.9% 1,000 ML IV SCH (20:46)
[2023-08-29] MEDS: SUCCINYLCHOLINE 20 MG/ML (10 ML) IV ONE (10:16)
[2023-08-29] MEDS ORDERED: ROCURONIUM 50 MG/5 ML VIAL IV ONE (10:18)
[2023-08-29] MEDS ORDERED: LIDOCAINE 2% MPF 5 ML VIAL ONE (10:18)
[2023-08-29] MEDS ORDERED: FENTANYL CITR 100 MCG/2 ML ONE ×2 (10:18→13:20)
[2023-08-29] MEDS ORDERED: ONDANSETRON 4 MG/2 ML VIAL ONE (10:18)
[2023-08-29] MEDS ORDERED: MIDAZOLAM HCL 2 MG/2 ML INJ ONE ×2 (10:18→10:58)
[2023-08-29] MEDS ORDERED: propofoL 200 MG/20 ML VIAL IV ONE (10:18)
[2023-08-29] MEDS: Ringers Lactate 1,000 ML IV ONE ×2 (10:23→21:17)
[2023-08-29] MEDS: SUGAMMADEX SODIUM 200 MG/2 ML VIAL IV ONE (14:13)
[2023-08-29] MEDS: ONDANSETRON 4 MG/2 ML VIAL ONE (14:45)
[2023-08-29] MEDS: HYDROMORPHONE HCL 1 MG/ML INJ ONE (14:45)
--- NOTE | 2023-08-29 15:22 | P.OP ---
Preoperative diagnosis: Cholecystitis with cholelithiasis Postoperative diagnosis: The same Primary procedure: Laparoscopic cholecystectomy Secondary procedure: Intraoperative cholangiogram with fluoroscopy Anesthesia: General Estimated blood loss: Less than 15 cc Specimen: 1 gallbladder and contents Operative Technique: The patient brought the operating room placed supine on the table. After the induction of adequate general endotracheal anesthesia, the area of the abdomen was prepped with a DuraPrep solution, and she was draped in the usual aseptic manner. A subumbilical incision was made. This brought down through the skin and subcutaneous tissue. The Visiport was used to enter the peritoneal cavity and created pneumoperitoneum to approximately 12 mmHg. Under direct vision a 5 mm trocar was placed in the upper midline, and 2 other fives on the right lateral side of the abdomen. We were now able to visualize the right upper quadrant. We could see a distended and mildly inflamed gallbladder. We can actually palpate stones through the wall of the gallbladder as we grasped the fundus and down by Kaba's pouch to be admitted related for dissection. At this point applying lateral traction, were able to dissect out and expose both the cystic duct and artery. Having obtained the critical view, a clip was placed between the gallbladder and the cystic duct. An opening was made into the cystic duct through which we obtained a cholangiogram. The cholangiogram did not demonstrate any filling defects, there was some extravasation of dye. We had a better visualization after we released all the clamps on the gallbladder as we due to its size has been distorting its shape and ability to outflow. At this point the cholangiocatheter was removed. Clips were placed on the distal portion of the cystic duct. The cystic artery was now fully divided after having been clipped in the usual manner. The gallbladder was then dissected free from the liver bed, and brought out through the umbilical trocar site. The abdomen was now inspected to ensure adequate hemostasis. The irrigating fluid was after from the subhepatic area. The right paracolic gutter was also aspirated until clear. The umbilical trocar site was approximated using 2 interrupted sutures of the Endo Close, as I suspect that she had a small preexisting umbilical hernia. We did this in attempt to close it. At this point the abdomen was inspected 1 more time. The pneumoperitoneum was collapsed. Sutures tied. And jarvis applied to the skin. At the end of the procedure she was in a stable condition was sent to the recovery room. Needle sponge instrument count were correct. No drains were placed. Complications: None Transferred to: Recovery Room Condition: Good
--- NOTE | 2023-08-29 15:26 | RAD REPORT ---
EXAM DESCRIPTION: RAD - Cholangiogram Oper-Xray Or - 08/29/2023 3:20 pm CLINICAL HISTORY: LAP NICOLA COMPARISON: Abdomen Pelvis W Contrast dated 08/23/2023 FINDINGS: Contrast injection was performed by the operating surgeon. Common bile duct appears normal caliber. No evidence of retained stone. Total fluoro time: 0.4 minutes
[2023-08-29] MEDS: HYDROCODONE/APAP 7.5/325 MG TAB PO PRN (17:38)
[2023-08-29] MEDS: ONDANSETRON 4 MG/2 ML VIAL IV PRN (21:39)
[2023-08-30 10:45] VITALS: O2SAT 97
--- NOTE | 2023-08-30 13:04 | P.PN ---
Date of Service: 08/30/23 S: Patient feels better today, up ambulating, tolerating a diet. Pain controlled on oral medication. O: Negative exam A: Patient well status post laparoscopic cholecystectomy with a negative cholangiogram P: Discharge home
--- NOTE | 2023-08-30 13:10 | P.DS ---
Admission Date: 08/28/23 Discharge Date: 08/30/23 Disposition: ROUTINE DISCHARGE Discharge Condition: GOOD Reason for Admission: Acute postoperative abdominal pain Procedures: Laparoscopic cholecystectomy with cholangiogram Brief History of Present Illness: Patient presented to emergency room with severe right upper quadrant abdominal pain for diagnosis and treatment Hospital Course: Patient presented to the emergency room with severe abdominal pain, was found to have cholecystitis with cholelithiasis. She was brought to the operating room she underwent a laparoscopic cholecystectomy with a negative cholangiogram. Today she is up ambulating, tolerating a diet, her pain is controlled on oral medications and she is deemed fit for discharge. Vital Signs/Physical Exam: Temp Pulse Resp BP Pulse Ox 97.4 F 66 17 109/55 L 97 08/30/23 08:00 08/30/23 08:00 08/30/23 10:45 08/30/23 08:00 08/30/23 10:45 Laboratory Data at Discharge: WBC 9.70 thou/uL (4.3-10.9) 08/28/23 14:17 Hgb 13.8 g/dL (12.0-15.0) 08/28/23 14:17 Hct 40.3 % (36.0-45.0) 08/28/23 14:17 Plt Count 411 thou/uL (152-406) H 08/28/23 14:17 Sodium 139 mEq/L (136-145) 08/28/23 14:17 Potassium 3.7 mEq/L (3.5-5.1) 08/28/23 14:17 BUN 9 mg/dL (7-18) 08/28/23 14:17 Creatinine 0.87 mg/dL (0.55-1.02) 08/28/23 14:17 Glucose 96 mg/dL (74-106) 08/28/23 14:17 Total Bilirubin 0.5 mg/dL (0.2-1.0) 08/28/23 14:17 AST 27 U/L (15-37) 08/28/23 14:17 ALT 50 U/L (13-56) 08/28/23 14:17 Alkaline Phosphatase 108 U/L (45-117) 08/28/23 14:17 Home Medications: NK [No Home Meds] 08/28/23 Physician Discharge Instructions: DC IV, DC home. Continue incentive spirometry. You may shower. Change dressings as needed. Call my office for an appointment for next week stable remover. Any questions or problems, go to the emergency room, or contact me. Diet: Regular Activity: Ad lisa (Prescription for hydrocodone called into [facility] pharmacy for clinic.) Followup: NONE,NONE [Primary Care Provider] -
[2023-08-30 14:32] VITALS: BP 116/62; TEMP 98
== END 2023-08-30 13:42 | disposition home or self-care (01) | DRG 419 ==
LOC: ER 13:16 → ERHOLD 14:08 → 4TH 18:38
PROVIDERS: ADMIT Surgery; ATTEND Surgery
PROC: BF121ZZ Fluoroscopy of Gallbladder using Low Osmolar Contrast (ICD-10-PCS; 2023-08-29)
PROC: 0FT44ZZ Resection of Gallbladder, Percutaneous Endoscopic Approach (ICD-10-PCS; principal; 2023-08-29 11:00)
DX: K80.10 Calculus of gallbladder with chronic cholecystitis without obstruction (principal)
CPT/HCPCS: 36415; 74300; 80053; 81025; 85025; 88304; 94010; 96374; 96375; 99284; J1170; J2001; J2250; J2405; J2704; J3010; J7030; J7120